=== PATIENT | male | born 1990 | race African-American/Black ===

== ENCOUNTER → 2023-11-26 | Emergency (ER) | payer MEDICAID, OTHER ==
[~2023-11-26] VITALS: Ht 182.9 cm; Wt 89.0 kg
[2023-11-26 10:41] VITALS: O2SAT 98
[2023-11-26 11:20] LABS: CLARITY URINE CLEAR (CLEAR); COLOR URINE DARK YELLOW (YELLOW); GLUCOSE URINE NEGATIVE (NEGATIVE); KETONES URINE TRACE (NEGATIVE); LEUKOCYTE ESTERASE URINE NEGATIVE (NEGATIVE); NITRITE URINE NEGATIVE (NEGATIVE); OCCULT BLOOD URINE 1+ (NEGATIVE); PH URINE 5.5 (4.5-8.0); PROTEIN URINE 2+ (NEGATIVE); SPECIFIC GRAVITY URINE 1.031 (1.005-1.030); UROBILINOGEN URINE 0.2 E.U./dL (0.2-1.0)
[2023-11-26 11:40] LABS: BACTERIA URINE 1+; YEAST URINE NONE SEEN
[2023-11-26 11:40] LABS: CHLORIDE 105 mEq/L (98-107); POTASSIUM 3.9 mEq/L (3.5-5.1); SODIUM 132 mEq/L (136-145)
[2023-11-26 11:41] LABS: CARBON DIOXIDE 20 mEq/L (21-32)
[2023-11-26 11:42] LABS: SQUAMOUS EPITHELIAL CELL URINE RARE /lpf (RARE/1+)
[2023-11-26 11:42] LABS: CALCIUM 9.4 mg/dL (8.7-10.4)
[2023-11-26 11:43] LABS: DIFFERENTIAL COMMENT 1; HEMATOCRIT. 54.7 % (42.0-52.0); HEMOGLOBIN. 18.4 g/dL (14.0-18.0); MEAN CORPUSCULAR HEMOGLOBIN 31.9 pg (28.0-32.0); MEAN CORPUSCULAR HGB CONC 33.7 g/dL (31.0-37.0); MEAN CORPUSCULAR VOLUME 94.8 fL (80.0-94.0); MEAN PLATELET VOLUME 7.4 fl (7.4-10.4); PLATELET 357 x1000/uL (130-400); RED BLOOD CELL COUNT 5.77 mill/uL (4.7-6.1); RED CELL DISTRIBUTION WIDTH 13.6 % (11.6-14.6)
[2023-11-26 11:46] LABS: CREATININE 1.1 mg/dL (0.6-1.3); GLUCOSE 124 mg/dL (70-105); UREA NITROGEN BLOOD 11 mg/dL (9-23)
[2023-11-26 11:48] LABS: TROPONIN I HIGH SENSITIVITY 10 ng/L (3.0-53)
[2023-11-26 11:49] LABS: ALANINE AMINOTRANSFERASE 27 IU/L (10-49); ALBUMIN 4.6 g/dL (3.2-4.8); ASPARTATE AMINOTRANSFERASE 23 IU/L (<34); BILIRUBIN DIRECT 0.1 mg/dL (<=3.0); BILIRUBIN TOTAL 0.3 mg/dL (0.1-1.0); PROTEIN TOTAL 7.8 g/dL (6.0-8.3)
[2023-11-26 15:01] LABS: PLATELET ESTIMATE NORMAL
[2023-11-26 17:00] VITALS: BP 161/135; PULSE 77; RESP 18; TEMP 97.6
== END ==
LOC: ER 10:27 → 8WST 15:09 → UNDOADMIN 15:09 → EDBEDREQ 15:21 → EDBEDREQTM 15:21 → UNDODISIN 21:05
DX: I21.19 ST elevation (STEMI) myocardial infarction involving other coronary artery of inferior wall (principal); R11.2 Nausea with vomiting, unspecified; R19.7 Diarrhea, unspecified
CPT/HCPCS: 80076; 80048; 81003; 83690; 85025; 84484; 36415; 71045; 74176; 93005; 99291; Z7610 ×4; 99285